=== PATIENT | male | born 1995 ===

== ENCOUNTER 2025-01-27 09:20 | Emergency (ER) | payer SELFPAY ==
[2025-01-27] MEDS: Acetaminophen 500 MG Tab PO ONE (09:57)
[2025-01-27] MEDS: Lidocaine 1% with EPINEPHrine 1:100,000 10 ML MDV INFILT ONE (09:58)
[2025-01-27] MEDS: Ketorolac 30 MG/ML SDV IM ONE (10:25)
== END 2025-01-27 13:17 | disposition home or self-care (01) ==
LOC: MW.ED 09:20
DX: S06.9X9A Unspecified intracranial injury with loss of consciousness of unspecified duration, initial encounter (principal); S02.85XA Fracture of orbit, unspecified, initial encounter for closed fracture; S01.111A Laceration without foreign body of right eyelid and periocular area, initial encounter; R04.0 Epistaxis; Y04.8XXA Assault by other bodily force, initial encounter
CPT/HCPCS: 12011; 70450; 70486; 96372; 99283; A9270; J1885